=== PATIENT | male | born 1945 | race African-American/Black ===

== ENCOUNTER 2021-10-14 05:33 | Inpatient (IN) ==
[2021-10-10 12:23] LABS: Basophils % 0.5 % (0.0-0.8); Eosinophils # 0.1 10*3/uL (0.0-0.87); Eosinophils % 1.6 % (0.00-10.9); Hematocrit 42.2 VOL% (42.0-52.0); Hemoglobin 13.9 GM/DL (14.0-18.0); Immature Granulocytes % 0.3 %; Immature Granulocytes Absolute 0.01 #; Lymphocytes # 1.5 10*3/uL (1.4-4.0); Lymphocytes % 39.4 % (21.2-54.2); Mean Corpuscular HGB Conc 32.9 GM/DL (32-36); Mean Corpuscular Volume 84.1 FL (87-102); Mean Platelet Volume 11.5 FL (9.6-12.0); Monocytes % 11.4 % (1.7-12.7); Neutrophils % 46.8 % (38.7-73.9); Platelet Count 202 T/CUMM (130-400); Red Blood Count 5.02 MC/CUMM (3.8-5.5); Red Cell Distribution Width 14.8 % (9.3-17.3); White Blood Count 3.8 T/CUMM (4-12)
[2021-10-10 12:46] LABS: Albumin 3.7 G/DL (3.4-5.0); Bilirubin,Total 0.5 MG/DL (0.20-1.00); Calcium 9.1 MG/DL (8.5-10.1); Osmolality,Calculated 278.5 MOS/KG (273-304); Potassium 3.7 MMOL/L (3.5-5.1); Total Protein 7.4 G/DL (6.4-8.2)
[2021-10-14] MEDS ORDERED: MIDAZOLAM 2 MG/2 ML VIAL ONE (06:20)
[2021-10-14] MEDS ORDERED: propofoL 200 MG/20 ML VIAL IV ONE (06:20)
[2021-10-14] MEDS ORDERED: fentaNYL 100 MCG/2 ML VIAL ONE ×3 (06:20→11:54)
[2021-10-14] MEDS ORDERED: ROCURONIUM 50 MG/5 ML VIAL IV ONE ×2 (06:20→07:57)
[2021-10-14] MEDS ORDERED: LIDOCAINE 2% 5 ML VIAL ONE (06:20)
[2021-10-14] MEDS ORDERED: ROPIVACAINE 0.5% 30 ML VIAL ONE ×2 (06:23→06:39)
[2021-10-14] MEDS ORDERED: DEXAMETHASONE 4 MG/1 ML VIAL ONE ×2 (06:23→07:57)
[2021-10-14] MEDS ORDERED: LIDOCAINE 1% 5 ML VIAL ONE (06:23)
[2021-10-14] MEDS ORDERED: cefTRIAXone 1,000 MG in SODIUM CHLORIDE 0.9% 100 ML IV ONE (06:30)
[2021-10-14] MEDS ORDERED: ALVIMOPAN 12 MG CAPSULE ONE (06:53)
[2021-10-14] MEDS ORDERED: ALVIMOPAN 12 MG CAPSULE PO ONE (07:03)
[2021-10-14] MEDS: LACTATED RINGERS 1,000 ML IV SCH ×2 (07:09→08:30)
[2021-10-14] MEDS ORDERED: ePHEDrine 50 MG/ML VIAL ONE (07:26)
[2021-10-14] MEDS ORDERED: ONDANSETRON 4 MG/2 ML VIAL ONE (07:57)
[2021-10-14] MEDS ORDERED: GLYCOPYRROLATE 0.4 MG/2 ML VIAL ONE (08:19)
[2021-10-14 08:33] LABS: Bilirubin,Urine Negative (Negative); Blood, Urine Moderate mg/dL (Negative); Glucose,Urine (UA) Negative (Negative); Ketones,Urine Negative (Negative); Mucus,Urine Occasional /LPF (Occasional); Nitrite,Urine Negative (Negative); Protein,Urine Negative; RBC,Urine 1 /HPF (0-4); Squamous Epithelial Cell,Urine Occasional /HPF (0-10); Urine Appearance CLEAR (Clear); Urine Color Yellow (Yellow); Urine Specific Gravity 1.013 (1.001-1.035); Urine Urobilinogen < 2.0 EU/DL (<2.0)
[2021-10-14] MEDS ORDERED: PHENYLEPHRINE 1 MG/10 ML SYRINGE IV ONE (10:06)
[2021-10-14] MEDS ORDERED: ACETAMINOPHEN INJ 1,000 MG/100 ML VIAL IV ONE (10:06)
[2021-10-14] MEDS ORDERED: SEVOFLURANE 1 UNIT/15 MINUTE INH ONE ×6 (10:08→11:30)
[2021-10-14] MEDS ORDERED: SUGAMMADEX 200 MG/2 ML VIAL IV ONE (10:08)
[2021-10-14] MEDS ORDERED: LACTATED RINGERS 1,000 ML IV ONE (11:03)
[2021-10-14] MEDS ORDERED: ONDANSETRON 4 MG/2 ML VIAL IV PRN (11:53)
[2021-10-14] MEDS ORDERED: PROMETHAZINE 25 MG/1 ML VIAL IM PRN (11:53)
[2021-10-14] MEDS ORDERED: CALCIUM CARBONATE CHEW 500 MG TABLET PO PRN (11:53)
[2021-10-14] MEDS ORDERED: diphenhydrAMINE 50 MG/1 ML VIAL IV PRN (11:53)
[2021-10-14 13:00] LABS: Basophils % 0.1 % (0.0-0.8); Eosinophils % 0.1 % (0.00-10.9); Hematocrit 36.9 VOL% (42.0-52.0); Hemoglobin 11.9 GM/DL (14.0-18.0); Immature Granulocytes % 0.4 %; Immature Granulocytes Absolute 0.04 #; Lymphocytes % 9.6 % (21.2-54.2); Mean Corpuscular HGB Conc 32.2 GM/DL (32-36); Mean Corpuscular Volume 86.6 FL (87-102); Mean Platelet Volume 10.5 FL (9.6-12.0); Monocytes % 1.5 % (1.7-12.7); Neutrophils % 88.3 % (38.7-73.9); Platelet Count 168 T/CUMM (130-400); Red Blood Count 4.26 MC/CUMM (3.8-5.5); Red Cell Distribution Width 14.8 % (9.3-17.3); White Blood Count 10.3 T/CUMM (4-12)
[2021-10-14 13:18] LABS: Calcium 8.6 MG/DL (8.5-10.1); Osmolality,Calculated 287.4 MOS/KG (273-304); Potassium 3.8 MMOL/L (3.5-5.1)
[2021-10-14 13:32] LABS: Band Neutrophils 2 % (0-10); Eosinophils 1 % (0-10); Lymphocytes 10 % (20-55); Platelet Estimate Adequate; Segmented Neutrophils 86 % (50-85); Total Cells Counted 100
[2021-10-14] MEDS: ACETAMINOPHEN 325 MG TABLET PO SCH ×2 (14:08→18:05)
[2021-10-14] MEDS: SODIUM CHLORIDE 0.9% 1,000 ML IV SCH (14:11)
[2021-10-14] MEDS: SIMETHICONE CHEW 125 MG TABLET PO SCH ×3 (14:35→21:41)
[2021-10-14] MEDS: HYDROmorphone 2 MG/1 ML VIAL IV PRN ×2 (15:42→21:46)
[2021-10-14] MEDS: cefTRIAXone 1,000 MG in SODIUM CHLORIDE 0.9% 100 ML IV SCH (15:42)
[2021-10-14] MEDS ORDERED: POLYVINYL ALCOHOL 1.4% OPH SOLN 15 ML BOTTLE RIGHT EYE PRN (16:16)
[2021-10-14] MEDS ORDERED: OXYBUTYNIN 5 MG TABLET PO SCH (21:00)
[2021-10-14] MEDS: ALVIMOPAN 12 MG CAPSULE PO SCH (21:40)
[2021-10-14] MEDS: MAGNESIUM OXIDE 400 MG TABLET PO SCH (21:41)
[2021-10-14] MEDS: OXYBUTYNIN 5 MG TABLET PO SCH (21:41)
[2021-10-14] MEDS: DOCUSATE SODIUM 100 MG CAPSULE PO SCH (21:41)
[2021-10-15] MEDS: ACETAMINOPHEN 325 MG TABLET PO SCH ×4 (00:29→18:26)
[2021-10-15] MEDS: SODIUM CHLORIDE 0.9% 1,000 ML IV SCH (03:09)
[2021-10-15 06:01] LABS: Basophils % 0.1 % (0.0-0.8); Hematocrit 34.5 VOL% (42.0-52.0); Hemoglobin 11.5 GM/DL (14.0-18.0); Immature Granulocytes % 0.4 %; Immature Granulocytes Absolute 0.04 #; Lymphocytes # 1.2 10*3/uL (1.4-4.0); Lymphocytes % 12.3 % (21.2-54.2); Mean Corpuscular HGB Conc 33.3 GM/DL (32-36); Mean Corpuscular Volume 85.4 FL (87-102); Mean Platelet Volume 11.4 FL (9.6-12.0); Monocytes % 7.1 % (1.7-12.7); Neutrophils % 80.1 % (38.7-73.9); Platelet Count 183 T/CUMM (130-400); Red Blood Count 4.04 MC/CUMM (3.8-5.5); Red Cell Distribution Width 14.8 % (9.3-17.3); White Blood Count 9.6 T/CUMM (4-12)
[2021-10-15 06:03] LABS: Calcium 8.3 MG/DL (8.5-10.1); Osmolality,Calculated 279.5 MOS/KG (273-304); Potassium 3.4 MMOL/L (3.5-5.1)
[2021-10-15 06:04] LABS: Calcium 8.4 MG/DL (8.5-10.1); Osmolality,Calculated 277.7 MOS/KG (273-304); Potassium 3.5 MMOL/L (3.5-5.1)
[2021-10-15 06:24] LABS: Band Neutrophils 1 % (0-10); Lymphocytes 12 % (20-55); Platelet Estimate Adequate; Segmented Neutrophils 79 % (50-85); Total Cells Counted 100
[2021-10-15] MEDS ORDERED: POTASSIUM CHLORIDE 20 MEQ TABLET PO ONE (07:30)
[2021-10-15] MEDS ORDERED: MAGNESIUM SULF RIDER 2 GM/50 ML PREMIX IV ONE (07:39)
[2021-10-15] MEDS: oxyCODONE/ACETAMINOPHEN 5-325 MG TABLET PO PRN ×3 (08:59→20:34)
[2021-10-15] MEDS: lisinopriL 10 MG TABLET PO SCH (09:00)
[2021-10-15] MEDS: ATORVASTATIN 20 MG TABLET PO SCH (09:00)
[2021-10-15] MEDS: POLYETHYLENE GLYCOL POWDER 17 GM PACK PO SCH (09:00)
[2021-10-15] MEDS: ALVIMOPAN 12 MG CAPSULE PO SCH ×2 (09:01→20:35)
[2021-10-15] MEDS: amLODIPine 10 MG TABLET PO SCH (09:01)
[2021-10-15] MEDS: MAGNESIUM OXIDE 400 MG TABLET PO SCH ×2 (09:01→20:34)
[2021-10-15] MEDS: DOCUSATE SODIUM 100 MG CAPSULE PO SCH ×2 (09:01→20:35)
[2021-10-15] MEDS: POTASSIUM CHLORIDE 20 MEQ TABLET PO SCH (09:01)
[2021-10-15] MEDS: CHLORTHALIDONE 25 MG TABLET PO SCH (09:01)
[2021-10-15] MEDS: PANTOPRAZOLE 40 MG TABLET PO SCH (09:01)
[2021-10-15] MEDS: OXYBUTYNIN 5 MG TABLET PO SCH ×3 (09:02→20:35)
[2021-10-15] MEDS: SIMETHICONE CHEW 125 MG TABLET PO SCH ×4 (11:48→20:34)
[2021-10-15] MEDS: cefTRIAXone 1,000 MG in SODIUM CHLORIDE 0.9% 100 ML IV SCH (16:31)
[2021-10-16] MEDS: ACETAMINOPHEN 325 MG TABLET PO SCH ×2 (00:36→08:59)
[2021-10-16] MEDS: oxyCODONE/ACETAMINOPHEN 5-325 MG TABLET PO PRN ×2 (04:05→08:58)
[2021-10-16 06:28] LABS: Basophils % 0.1 % (0.0-0.8); Eosinophils # 0.1 10*3/uL (0.0-0.87); Eosinophils % 1.3 % (0.00-10.9); Hemoglobin 11.5 GM/DL (14.0-18.0); Immature Granulocytes % 0.5 %; Immature Granulocytes Absolute 0.04 #; Lymphocytes # 1.6 10*3/uL (1.4-4.0); Lymphocytes % 19.7 % (21.2-54.2); Mean Corpuscular HGB Conc 32.9 GM/DL (32-36); Mean Platelet Volume 11.1 FL (9.6-12.0); Monocytes % 5.7 % (1.7-12.7); Neutrophils % 72.7 % (38.7-73.9); Platelet Count 180 T/CUMM (130-400); Red Blood Count 4.07 MC/CUMM (3.8-5.5); Red Cell Distribution Width 15.2 % (9.3-17.3); White Blood Count 7.9 T/CUMM (4-12)
[2021-10-16 06:33] LABS: Calcium 8.4 MG/DL (8.5-10.1); Osmolality,Calculated 279.3 MOS/KG (273-304); Potassium 3.5 MMOL/L (3.5-5.1)
[2021-10-16 06:56] LABS: Eosinophils 3 % (0-10); Hypochromia Slight; Lymphocytes 22 % (20-55); Microcytosis Slight; Platelet Estimate Adequate; Segmented Neutrophils 71 % (50-85); Total Cells Counted 100
[2021-10-16 08:00] VITALS: BP 157/80
[2021-10-16] MEDS: POLYETHYLENE GLYCOL POWDER 17 GM PACK PO SCH (08:57)
[2021-10-16] MEDS: ATORVASTATIN 20 MG TABLET PO SCH (08:59)
[2021-10-16] MEDS: POTASSIUM CHLORIDE 20 MEQ TABLET PO SCH (08:59)
[2021-10-16] MEDS: MAGNESIUM OXIDE 400 MG TABLET PO SCH (08:59)
[2021-10-16] MEDS: ALVIMOPAN 12 MG CAPSULE PO SCH (08:59)
[2021-10-16] MEDS: amLODIPine 10 MG TABLET PO SCH (08:59)
[2021-10-16] MEDS: PANTOPRAZOLE 40 MG TABLET PO SCH (09:00)
[2021-10-16] MEDS: DOCUSATE SODIUM 100 MG CAPSULE PO SCH (09:00)
[2021-10-16] MEDS: lisinopriL 10 MG TABLET PO SCH (09:00)
[2021-10-16] MEDS: OXYBUTYNIN 5 MG TABLET PO SCH (09:00)
[2021-10-16] MEDS: CHLORTHALIDONE 25 MG TABLET PO SCH (09:00)
[2021-10-16] MEDS: SIMETHICONE CHEW 125 MG TABLET PO SCH (09:00)
== END 2021-10-16 10:00 | disposition home or self-care (01) | DRG 708 ==
LOC: N.OR 05:33 → N.SDSINP 05:34 → N.3E 13:13
PROVIDERS: ADMIT Surgery; ATTEND Surgery